=== PATIENT | female | born 1980 | race Caucasian/White ===

== ENCOUNTER 2016-09-13 01:19 | Emergency (ER) | payer BC ==
[~2016-09-13] VITALS: Ht 167.6 cm; Wt 77.1 kg
[2016-09-13 01:27] VITALS: BP 109/78; PULSE 95; RESP 18; TEMP 98; O2SAT 98
[2016-09-13] MEDS ORDERED: TRAZ300T2 PO (01:40)
[2016-09-13] MEDS ORDERED: LAMI200T PO (01:40)
[2016-09-13] MEDS ORDERED: MELA1TAB18 PO (01:40)
[2016-09-13] MEDS ORDERED: ULTR50TA5 PO (02:12)
[2016-09-13] MEDS ORDERED: AUGM875T PO (02:12)
--- NOTE | 2016-09-13 02:13 | PD ---
HPI Chief Complaint: ENT Complaint Time Seen by Provider: 02:11 Travel History International Travel<30 days: No Contact w/Intl Traveler<30days: No Traveled to known affect area: No History of Present Illness HPI 36-year-old female presents to the emergency department for complaint of right ear pain 2 days. Patient states 2 days prior had drainage from the ear. Patient also notes sinus pressure. Patient denies fever. Patient denies trauma. Patient states unable to get symptom relief. Patient's had no sore throat neck pain chest pain shortness of breath cough nausea vomiting flank pain or other concerns. Patient rates ear pain 10 over 10 in intensity. Patient denies foreign body. PFSH Past Medical History Narrative Medical Kidney stones urinary tract infection depression; renal stent D&C tubal ligation ; alcohol use; nursing notes reviewed Depression: Yes Genitourinary: Yes (LEFT KIDNEY INFECTIONS, RIGHT KIDNEY STENT PLACED S/P STONES) Kidney Stones: Yes Reproductive: Yes (ENDOMETRIOSIS) Tetanus Vaccination: > 5 Years Influenza Vaccination: No ?: Not LMP: 08/13/16 : 7 Para: 4 Miscarriage: 2 : 1 Dilation and Curettage (D&C): Yes Tubal Ligation: Yes Past Surgical History Section: Yes (X1) Social History Alcohol Use: Yes ("A COUPLE OF TIMES PER WEEK") Tobacco Use: No Substance Use: No Allergies-Medications (Allergen,Severity, Reaction): Coded Allergies: Vicodin (Verified Adverse Reaction, Intermediate, Nausea/Vomiting, 09/13/16 ) Reported Meds & Prescriptions Reported Meds & Active Scripts Active Augmentin (Amoxicillin-Clavulanate) 875-125 mg Tab 875 Mg PO BID 7 Days not for use in CrCl <30 ml/min. Ultram (Tramadol HCl) 50 Mg Tab 50 Mg PO Q6H PRN Reported Melatonin 10 Mg Tab 10 Mg PO HS PRN Lamictal (Lamotrigine) 200 Mg Tab 200 Mg PO HS Trazodone (Trazodone HCl) 300 Mg Tab 300 Mg PO HS Review of Systems Except as stated in HPI: all other systems reviewed are Neg Physical Exam Narrative GENERAL: Well-developed well-nourished female intermittently crying holding her right ear SKIN: Warm and dry. HEAD: Normocephalic. EYES: No scleral icterus. No injection or drainage. ENT: Mucous membranes moist airway is patent left tympanic membrane no redness no dullness to loss of landmarks no perforation right tympanic membrane red dull with fluid noted behind the membrane without evidence of perforation. NECK: Supple, trachea midline. No JVD or lymphadenopathy. CARDIOVASCULAR: Regular rate and rhythm without murmurs, gallops, or rubs. RESPIRATORY: Breath sounds equal bilaterally. No accessory muscle use. GASTROINTESTINAL: Abdomen soft, non-tender, nondistended. MUSCULOSKELETAL: No cyanosis, or edema. BACK: Nontender without obvious deformity. No CVA tenderness. Data Data Last Documented VS Vital Signs Date Time Temp Pulse Resp B/P Pulse Ox O2 Delivery O2 Flow Rate FiO2 09/13/16 01:27 98.0 95 18 109/78 98 Orders Ibuprofen (Motrin) (09/13/16 02:15) Amoxicil-Clavulanate (Augmentin) (09/13/16 02:15) [facility] Medical Decision Making Medical Screen Exam Complete: Yes Emergency Medical Condition: Yes Medical Record Reviewed: Yes Differential Diagnosis Otalgia, otitis media, tympanic membrane perforation, retained foreign body, otitis externa, sinusitis, trauma Narrative Course Patient administered ibuprofen and Augmentin; patient stable for outpatient management and oral pain medication and ongoing antibiotic Patient encouraged to follow-up with her primary care provider return to the emergency department as needed Patient noted improvement of symptoms prior to discharge. Diagnosis Primary Impression: Otitis media Referrals: Primary Care Physician call for appointment Patient Instructions: General Instructions Med/Other Pt SpecificInfo: Prescription(s) given Scripts Amoxicillin-Clavulanate (Augmentin)875-125 mg [id number] Mg PO BID 7 Days Ref 0 not for use in CrCl <30 ml/min. Prov:Raquel Chacko MD 09/13/16 Tramadol (Ultram)50 Mg Tab50 Mg PO Q6H PRN (PAIN) #12 TAB Ref 0 Prov:Raquel Chacko MD 09/13/16 Disposition: 01 DISCHARGE HOME Condition: Stable Raquel Chacko MD Sep 13, 2016 02:13
[2016-09-13] MEDS ORDERED: IBUPROFEN 800 MG TAB PO ONE (02:15)
[2016-09-13] MEDS ORDERED: AMOXICILLIN/CLAVULANATE K 875 MG TAB PO ONE (02:15)
== END 2016-09-13 02:36 | disposition home or self-care (01) ==
LOC: PHED 01:19
DX: H66.91 Otitis media, unspecified, right ear (principal)
CPT/HCPCS: 99283